=== PATIENT | male | born 1990 | race Caucasian/White ===

== ENCOUNTER 2017-05-30 20:11 | Emergency (ER) | payer BC ==
[~2017-05-30] VITALS: Ht 172.7 cm; Wt 82.4 kg
[~2017-05-30 20:11] MED LIST: MULTIVITAMIN1 EAC2
[2017-05-30 20:59] LABS: HEMATOCRIT 44.6 % (38.0-50.0); MCH 29.1 PG (29.0-34.0); MCHC 34.3 G/DL (30.0-36.0); MCV 84.8 FL (86-99); MEAN PLAT.VOLUME 8.9 uM^3 (9.0-12.4); PLATELET COUNT 200 K/uL (156-360); RBC DIS.WIDTH-SD 36.7 % (39-53); RED BLOOD COUNT 5.26 M/uL (4.00-5.50); WHITE BLOOD COUNT 8.6 K/uL (4.1-10.2)
[2017-05-30 21:07] LABS: CHLORIDE 105 mEq/L (99-109); POTASSIUM 3.4 mEq/L (3.7-5.4); SODIUM 143 mEq/L (136-147)
[2017-05-30 21:09] LABS: GLUCOSE 150 mg/dL (70-99)
[2017-05-30 21:11] LABS: ANION GAP 11 MEQ/L (2-14); TOTAL BILIRUBIN 0.2 mg/dL (0.0-1.0)
[2017-05-30 21:13] LABS: ALKALINE PHOSPHATASE 65 IU/L (3-129); GFR ESTIMATE (CALCULATED) > 59 mL/min/
[2017-05-30 21:14] LABS: UREA NITROGEN (BUN) 15 mg/dL (9-23)
[2017-05-30 22:57] VITALS: BP 114/75
== END 2017-05-30 22:59 | disposition home or self-care (01) ==
LOC: EME 20:11
PROVIDERS: Physician Assistant
DX: R00.2 Palpitations (principal); T43.595A Adverse effect of other antipsychotics and neuroleptics, initial encounter; F41.9 Anxiety disorder, unspecified
CPT/HCPCS: 71020; 80053; 84443; 85027; 85379; 93005; 99281; 99285; J7030